=== PATIENT | female | born 1925 | race Caucasian/White ===

== ENCOUNTER 2016-04-20 19:28 | Inpatient (IN) | payer OTHER, MEDICAID ==
[~2016-04-20] VITALS: Ht 162.6 cm; Wt 54.4 kg
--- NOTE | ~2016-04-20 | HC ---
[facility] [place] [address] CONSULTATION Name: JOSEMIKALPUNEET Nayeli Room #: 405-P [facility] IN M.R.#: [id number] Admission: 04/20/16 Attend Phys: Mary Zeng Discharge: Date of : [birth year] Report #: [id number] THIS REPORT FOR: //name// CC: Mary Crawley INFECTIOUS DISEASE CONSULTATION REASON FOR CONSULTATION: Possible UTI. HISTORY OF PRESENT ILLNESS: The patient is an 89-year-old white woman who presents to the Emergency Room on the date of admission complaining of fever at 101.6 and episode of vomiting. The patient is diagnosed to have urinary tract infection, broad spectrum antibiotic initiated. The patient today is feeling some better, voices no major complaints. PAST MEDICAL HISTORY: 1. Hypertension. 2. Osteoarthritis. 3. CVA 20 years ago. 4. Back surgery by ____ 15 years ago. 5. COPD. 6. Atrial fibrillation. 7. Chronic constipation. 8. Gastroesophageal reflux. DRUG ALLERGIES: Penicillin. MEDICATIONS: The patient is on Rocephin 1 gram IV daily since the of the month, enoxaparin, gabapentin, aspirin, diltiazem, amlodipine, tamsulosin, morphine sulfate p.r.n., acetaminophen p.r.n., zolpidem p.r.n., polyethylene glycol daily, nitroglycerin p.r.n., ondansetron p.r.n. FAMILY HISTORY: See H and P. REVIEW OF SYSTEMS: See H and P. PHYSICAL EXAMINATION: GENERAL: A well-developed woman, nontoxic looking, small, frail-appearing. VITAL SIGNS: Temperature 98.5, pulse 85, respirations 18, BP 145/73, weight 120 pounds, height 5 feet 4 inches. HEENT: Mouth, dry mucous membrane, no thrush. NECK: Supple. LUNGS: Clear to auscultation. HEART: S1, S2. No gallop or murmur. ABDOMEN: Soft, no masses or megaly, no abnormal tenderness. PELVIC AND RECTAL: Deferred. [facility] [address] [place] [address] CONSULTATION Name: PUNEET INGRAM Room #: 405-P [facility] IN ..#: [id number] Admission: 04/20/16 Attend Phys: Mary Zeng Discharge: Date of : [birth year] Report #: [id number] EXTREMITIES: No clubbing, cyanosis. LABORATORY DATA: Sodium 134, potassium 3.5, BUN 12, creatinine 0.7, albumin 2.7 04/21/2016. WBC 8400, hemoglobin 10.9 g/dL, platelets 205,000. Urinalysis on admission reveals specific gravity 1.015 ____, 2+ protein, trace ketones, positive nitrite. Microscopic exam revealed hematuria as well as bacteriuria and moderate amorphous urates. MICROBIOLOGY DATA: Urine culture revealed greater than 100,000 colonies of E. coli sensitive to cefazolin, aztreonam, and ceftriaxone. RADIOLOGY EVALUATION: A chest x-ray revealed cardiomegaly, no pneumothorax or effusion. ASSESSMENT: 1. Acute urinary tract infection with Escherichia coli. 2. Mild dementia. 3. Hyponatremia. 4. Anemia of chronic disease. 5. Chronic back pain. 6. Status post cholecystectomy and back surgery. SUGGESTIONS: The patient appears to have responded quite nicely to ceftriaxone, consequently will continue this drug. The patient is already afebrile and white blood cell count, normal. When the decision to discharge her is made, I suspect that she could be switched to an oral antibiotic like Keflex 500 mg 3 times daily for [address] Reyes, thank you for requesting my suggestions in the care of your patient. <ELECTRONICALLY SIGNED> By: Reji Mota MD 04/24/16 1011 [id number] [id number] Reji Mota MD /nt
--- NOTE | ~2016-04-20 | EKG ---
[place] [address] [facility] [place] [address] ELECTROCARDIOGRAM REPORT Name: JOSEMIKALPUNEET Nayeli Room #: 405-P [facility] IN M.R.#: [id number] Admission: 04/20/16 Attend Phys: Mary Zeng Discharge: Date of : [birth year] Report #: [id number] THIS REPORT FOR: //name// [facility] ED Test Date: 2016-04-20 Test Time: 19:45:54 Pat Name: PUNEET INGRAM Department: Room: 405 Gender: F Healthcare Recruiter: MZOOLast : 1925 Requested By: Cher Nevarez Order Number: [id number] MD: Lazaro Oliver Measurements Intervals [place] Rate: 79 P: -71 OK: 303 QRS: -2 QRSD: 100 T: 27 QT: 375 QTc: 430 Interpretive Statements Sinus or ectopic atrial rhythm Atrial premature complexes Prolonged OK interval No previous ECG available for comparison Electronically Signed On 04-21-2016 16:42:28 [employer] by Lazaro Oliver [email or web address] <ELECTRONICALLY SIGNED> By: Lazaro Oliver MD 04/21/16 1642 1945 194 Lazaro Oliver MD /[place]
[2016-04-20 12:40] VITALS: BP 128/57
[~2016-04-20 19:28] MED LIST: ACETAMINOPHEN325 M1 PO; ACID CONTROL20 MG PO; ADULT LOW DOSE81 MG PO; ALBUTEROL2.5 MG/0.5 INH; ALPRAZOLAM; ALPRAZOLAM 0.0.25 M1; AMLODIPINE BESY10 MG PO; AMLODIPINE BESYL5 MG PO; ASPIRIN EC325 M1 PO; B12INJ IM; BISCODYL RECTAL; CALCIUM ANTACI400 MG; CARDIZEM CD180 MG PO; CEPASTAT CHERR18 TA2; CLONIDINE0.1; COLACE100 MG PO; FENTANYL PA25 MCG/HR; FOSAMAX; GABAPENTIN 100100 MG; GUIAFENESIN; HYDROCODON-ACE1 EAC7; HYDROCODON-ACE1 EAC7 PO; HYDROCODONE-AP1 EA15 PO; HYDROCODONE-AP1 EAC6 PO; KLOR-CON 10 ER10 MEQ PO; LEVAQUIN 500 M500 MG PO; MECLIZINE HCL25 M1 PO; MELOXICAM7.5 MG PO; MIRALAX255 GM PO; MIRTAZAPINE15 M1 PO; MOBIC15 MG PO; MOM PO; NITROGLYCERIN0.4 MG PO; NORVASC PO; OMEPRAZOLE20 M2 PO; OMNICEF PO; PERCOCET 5-3251 EACH PO; POTASSIUM20 PO; PREDNISONE; PREMARIN0.625 MG PO; PROSTATE SR SO1 EACH PO; PROTEIN SUPPLEMENT PO; REMERON15 MG PO; SENEXON-S TABL1 EACH; SENNA S TABLET1 EACH PO; SORBITOL1 ML MC; TAMSULOSIN HCL0.4 M1 PO; UNICOMPLEX M TA1 TA1 PO; VITAMIN D3400 UNIT
[2016-04-20 19:29] VITALS: BP 124/51
[2016-04-20 19:49] LABS: HEMATOCRIT 33.6 % (37.0-47.0); HEMOGLOBIN 11.6 gm/dL (12.0-15.0); MCH 32.2 pg (26.0-34.0); MCHC 34.4 % (28.0-37.0); MCV 93.5 fL (80.0-100.0); PLATELET COUNT 151 thou/uL (150-400); RBC 3.59 mil/uL (4.20-5.00); WBC 8.3 thou/uL (4.0-11.0)
[2016-04-20 19:51] LABS: MANUAL DIFF YES
[2016-04-20 19:58] LABS: ANION GAP 10 mmol/L (7-16); BUN 20 mg/dL (7-18); CALCIUM 8.4 mg/dL (8.5-10.1); CHLORIDE 94 mmol/L (98-107); CO2 24 mmol/L (21-32); GLUCOSE 112 mg/dL (70-99); POTASSIUM 3.9 mmol/L (3.5-5.1); SODIUM 128 mmol/L (136-145)
[2016-04-20 20:02] LABS: APTT 33.4 Seconds (24.5-32.8); INR 1.3; PROTIME 13.4 Seconds (9.3-11.4)
[2016-04-20 20:03] LABS: URINE BILIRUBIN NEGATIVE (Negative); URINE BLOOD 2+ (Negative); URINE COLOR YELLOW; URINE GLUCOSE-RANDOM* NEGATIVE (Negative); URINE KETONES TRACE (Negative); URINE LEUKOCYTES-REFLEX 2+ (Negative); URINE PROTEIN (DIPSTICK) 2+ (Negative); URINE SPECIFIC GRAVITY 1.015 (1.003-1.035); URINE UROBILINOGEN 0.2 E.U./dl (0.2-1.0)
[2016-04-20 20:06] LABS: ALBUMIN 2.7 g/dL (3.4-5.0); ALKALINE PHOSPHATASE 161 U/L (46-116); SGOT 18 U/L (15-37); SGPT 21 U/L (30-65); TOTAL BILIRUBIN 0.9 mg/dL (<0.1-1.0); TOTAL PROTEIN 6.3 g/dL (6.4-8.2); TROPONIN-I < 0.04 ng/mL (<0.04-0.07)
[2016-04-20 20:08] LABS: ABSOLUTE NEUTROPHILS 7.1 thou/uL (1.4-8.2); TOTAL CELL COUNT 100
[2016-04-20 20:11] LABS: SQUAMOUS 0-3 Few /LPF (0-3); URINE RBC 3-10 Few /HPF (0-2); URINE WBC-REFLEX >25 Many /HPF (0-5)
[2016-04-20 20:12] LABS: AMORPHOUS URATES Moderate /LPF (None Seen); CASTS None Seen /LPF (None Seen)
[2016-04-20] MEDS ORDERED: TYLENOL325 MG PO (20:14)
[2016-04-20] MEDS ORDERED: B12INJ IM (20:15)
[2016-04-20] MEDS ORDERED: CERTAVITE SR-A1 EACH PO (20:15)
[2016-04-20] MEDS ORDERED: DILTIAZEM 24HR180 M3 PO (20:16)
[2016-04-20] MEDS ORDERED: POTASSIUM20 PO (20:17)
[2016-04-20] MEDS ORDERED: PEPCID40 MG PO (20:17)
[2016-04-20] MEDS ORDERED: CITRATE OF MAG296 ML PO (20:18)
[2016-04-20] MEDS ORDERED: DULCOLAX5 MG PO (20:19)
[2016-04-21 00:10] VITALS: BP 116/45
[2016-04-21 04:10] VITALS: BP 152/96
[2016-04-21 06:28] LABS: CALCIUM 8.1 mg/dL (8.5-10.1); CREATININE 0.8 mg/dL (0.6-1.3); POTASSIUM 3.9 mmol/L (3.5-5.1)
[2016-04-21 06:30] LABS: ALBUMIN 2.5 g/dL (3.4-5.0); PHOSPHORUS 2.5 mg/dL (2.5-4.9)
[2016-04-21 07:30] VITALS: BP 146/84
[2016-04-21 15:29] VITALS: BP 123/49
[2016-04-21 19:30] VITALS: BP 129/72
[2016-04-22 03:45] VITALS: BP 119/51
[2016-04-22 05:11] LABS: HEMOGLOBIN 10.9 gm/dL (12.0-15.0); MCHC 34.1 % (28.0-37.0); MCV 93.9 fL (80.0-100.0); RBC 3.41 mil/uL (4.20-5.00); WBC 8.4 thou/uL (4.0-11.0)
[2016-04-22 05:24] LABS: CALCIUM 7.9 mg/dL (8.5-10.1); CREATININE 0.7 mg/dL (0.6-1.3); POTASSIUM 3.5 mmol/L (3.5-5.1)
[2016-04-22 08:00] VITALS: BP 84/54
[2016-04-22 16:00] VITALS: BP 144/50
[2016-04-22 19:05] VITALS: BP 130/66
[2016-04-23 03:46] VITALS: BP 133/58
[2016-04-23 07:28] VITALS: BP 145/73
[2016-04-23 16:53] VITALS: BP 132/59
[2016-04-23 20:29] VITALS: BP 126/37
[2016-04-24 05:00] VITALS: BP 141/50
[2016-04-24 06:24] LABS: HEMATOCRIT 36.4 % (37.0-47.0); HEMOGLOBIN 12.2 gm/dL (12.0-15.0); MCH 31.5 pg (26.0-34.0); MCHC 33.4 % (28.0-37.0); MCV 94.2 fL (80.0-100.0); RBC 3.86 mil/uL (4.20-5.00); RDW 13.2 % (10.5-14.5)
[2016-04-24 06:47] LABS: CALCIUM 8.2 mg/dL (8.5-10.1); CREATININE 0.6 mg/dL (0.6-1.3); POTASSIUM 3.2 mmol/L (3.5-5.1)
[2016-04-24 08:30] VITALS: BP 134/52
[2016-04-24] MEDS ORDERED: PROBIOTIC1 EAC1 PO (12:56)
[2016-04-24] MEDS ORDERED: KEFLEX500 MG PO (12:56)
[2016-04-24 16:23] VITALS: BP 130/52
== END 2016-04-24 17:35 | DRG 871 ==
LOC: ER 19:28 → EROBS 23:06 → 4N 23:06
PROVIDERS: Emergency Medicine; Family Medicine; Hospitalist
DX: A41.9 Sepsis, unspecified organism (principal); G92 Toxic encephalopathy; N39.0 Urinary tract infection, site not specified; E87.1 Hypo-osmolality and hyponatremia; J98.11 Atelectasis; I10 Essential (primary) hypertension; M19.90 Unspecified osteoarthritis, unspecified site; J44.9 Chronic obstructive pulmonary disease, unspecified; D63.8 Anemia in other chronic diseases classified elsewhere; G89.29 Other chronic pain; I48.91 Unspecified atrial fibrillation; R13.10 Dysphagia, unspecified; K21.9 Gastro-esophageal reflux disease without esophagitis; R33.9 Retention of urine, unspecified; M54.9 Dorsalgia, unspecified; E86.0 Dehydration; F03.90 Unspecified dementia, unspecified severity, without behavioral disturbance, psychotic disturbance, mood disturbance, and anxiety; K59.09 Other constipation; B96.20 Unspecified Escherichia coli [E. coli] as the cause of diseases classified elsewhere; Z79.2 Long term (current) use of antibiotics; Z79.899 Other long term (current) drug therapy; Z88.0 Allergy status to penicillin; Z86.73 Personal history of transient ischemic attack (TIA), and cerebral infarction without residual deficits; Z87.891 Personal history of nicotine dependence; Z79.82 Long term (current) use of aspirin; Z91.81 History of falling; Z90.49 Acquired absence of other specified parts of digestive tract
CPT/HCPCS: 10091